=== PATIENT | female | born 1950 | race Caucasian/White ===

== ENCOUNTER → 2022-07-25 13:58 | Outpatient (REF) | payer MEDICARE, MEDICAID, SELFPAY ==
--- NOTE | 2022-07-25 14:02 | CA_ITS ---
Transthoracic Echocardiogram Patient (Last, First, Middle): Mi Elam, Gender: Female Date of : 1950 Age: 72 Procedure Date: 07/25/2022 Procedure Type: Transthoracic Echocardiogram Location: OP Height: 157.48 cm Weight: 145.15 kg BSA: 2.33 m2 Heart Rate: bpm BP: 140 / 82 mmHg Buttonholer: Referring MD: Lizeth Peters MD Symptoms: R01.1 - Cardiac murmur, unspecified Study Quality: Good ECG Rhythm: Sinus Conclusions: - The left ventricular systolic function is hyperdynamic. The visually estimated ejection fraction is >70%. - There is moderately increased left ventricular wall thickness. - There is mild aortic valve stenosis. - There is mild mitral annular calcification. Findings Left Ventricle Normal left ventricular cavity size. There is moderately increased left ventricular wall thickness. The left ventricular systolic function is hyperdynamic. The visually estimated ejection fraction is >70%. There is no evidence of regional wall motion abnormalities. Diastolic function is normal for age. Right Ventricle Normal right ventricular cavity size and systolic function. Atria Both atria are normal in size. Aortic Valve There is moderate calcification of the aortic valve. There is mild aortic valve stenosis. The peak aortic velocity is 3.10 m/s with a calculated peak gradient of 38 mmHg. The mean gradient is 19 mmHg. The aortic valve area is 1.68 cm2. There is no aortic valve regurgitation. Mitral Valve The mitral valve appears normal. There is mild mitral annular calcification. There is no mitral valve regurgitation. There is no mitral valve stenosis. Pulmonic Valve The pulmonic valve is likely normal. Tricuspid Valve There is mild tricuspid valve regurgitation. There is no evidence of pulmonary hypertension. Great Vessels The aortic annulus, sinuses of valsalva, and asc aorta are normal in size. Venous The inferior vena cava is normal in size and collapses greater than 50% with inspiration. Pericardium/Pleural There is no evidence of pericardial effusion. Prior Study Comparison No prior study available for comparison. Measurements 2D Linear Measurements IVSd: 1.43 0.6-0.9/0.6-1.0 cm LVIDd: 4.02 3.9-5.3/4.2-5.9 cm LVIDd Index: 1.73 2.4-3.2/2.2-3.1 cm/m2 LVIDs: 2.61 2.0-3.6 cm LVPWd: 1.35 0.7-1.1 cm Ao Root: 3.00 2.1-3.5 cm LA Diam: 4.20 2.7-3.8/3.0-4.0 cm LAIDs Index: 1.80 1.5-2.3 cm/m2 LV Mass: 259.45 67-162/88-224 g LV Mass Index: 111.35 43-95/49-115 g/m2 LVOT Diam: 2.00 3.0+(-)1.3 cm 2D Systolic Function EF 4C: 75.80 >55% EF 2C: 68.80 >55% EF BiP: 72.40 >55% Mitral Valve MV VTI: 0.48 MV Pk Niles: 1.31 MV Mn Niles: 0.77 MV Pk Grad: 7.00 MV Mn Grad: 3.00 MV Pk E: 0.99 MV PK A: 1.40 MV Decel Time: 274.00 E/A: 0.70 E'Lateral: 8.27 E'Medial: 6.85 E/E' Med: 14.50 E/E' Lat: 12.00 PHT: 80.00 MVA PHT: 2.75 MVA Continuity: 2.11 Decel Banner: 3.61 Aortic Valve AoV Pk Niles: 3.10 AoV Mn Niles: 2.01 AoV VTI: 0.60 AoV Pk Grad: 38.00 Aov Mn Grad: 19.00 LAUREN Cont.VTI: 1.68 LVOT LVOT Pk Niles: 1.45 LVOT Mn Niles: 0.99 LVOT VTI: 0.32 LVOT Pk Grad: 8.00 LVOT Mn Grad: 4.00 LVOT Diam: 2.00 LVOT Area: 3.14 Diastolic Function MV Pk E: 0.99 MV Pk A: 1.40 E/A: 0.70 E'Medial: 6.85 E/E' Med: 14.50 E' Laterial: 8.27 E/E' Lat: 12.00 Right Ventricle TAPSE (mm): 24.00 TVS' Niles: 13.00 Tricuspid Valve TR Pk Niles: 2.32 TR Pk Grad: 22.00 RA Press: 3.00 RVSP: 25.00 Great Vessels Aorta Ao Root-2D: 3.00 2.0-3.7 cm Ao Asc: 3.60 2.1-3.4 cm Ao Arch: 3.30 Pulmonary Valve PV Pk Niles: 1.86 Peak PV Grad: 14.00 Updated in Other Vendor System with Status of Final Bryce Duque MD electronically signed on 07/25/2022 4:29:00 PM with status of Final
== END ==
LOC: HO.CARD 13:58
PROVIDERS: PCP Internal Medicine; Visit Provider Internal Medicine
DX: R01.1 Cardiac murmur, unspecified (principal); E66.3 Overweight; B35.4 Tinea corporis
CPT/HCPCS: 93306

== ENCOUNTER 2022-08-02 09:25 | Outpatient (REF) | payer MEDICARE, MEDICAID, SELFPAY ==
[2022-08-02 11:27] LABS: MANUAL DIFF FLAG NO
[2022-08-02 11:39] LABS: Basophils Percent Auto 0.8 % (0-2); Eosinophils Absolute Auto 0.3 X10*3/uL (0.0-0.4); Hemoglobin 12.2 g/dl (12.0-16.0); Imm Gran Abs Auto 0.01 X10*3/uL (0.00-0.03); Imm Gran Pct Auto 0.2 % (0.0-0.4); Lymphocytes Absolute Auto 1.9 X10*3/uL (1.2-4.9); Lymphocytes Percent Auto 37.5 % (20-40); Mean Corpuscular HGB Conc 31.3 g/dl (31.0-35.0); Mean Corpuscular Hemoglobin 27.7 pg (27.0-33.0); Mean Corpuscular Volume 88.4 fL (80.0-98.0); Mean Platelet Volume 11.9 fL (9.4-12.3); Monocytes Absolute Auto 0.5 X10*3/uL (0.1-1.2); Monocytes Percent Auto 9.3 % (2-11); Neutrophils Absolute Auto 2.4 x10*3/uL (2.0-8.3); Neutrophils Percent Auto 46.2 % (45-73); Platelet Count 267 X10*3/uL (160-400); Red Blood Count 4.41 X10*6/uL (4.20-5.50); Red Cell Distribution Width 14.9 % (11.0-16.0); White Blood Count 5.2 X10*3/uL (4.8-10.8)
[2022-08-02 12:30] LABS: TSH reflex Free T4 0.78 uIU/mL (0.32-4.0)
[2022-08-02 12:31] LABS: Alanine Aminotransferase 13 U/L (0-31); Albumin Level 3.7 g/dL (3.5-5.0); Alkaline Phosphatase 104 U/L (39-117); Anion Gap 17 (12-20); Aspartate Amino Transferase 20 U/L (5-31); Bilirubin Total 0.5 mg/dL (0.0-1.0); Blood Urea Nitrogen 15 mg/dL (9-16); Calcium 9.1 mg/dL (8.4-10.2); Carbon Dioxide 23 mmol/L (22-29); Chloride 104 mmol/L (96-108); Cholesterol 177 mg/dL; Estimated Glomerular Filt Rate > 60; Glucose Fasting 83 mg/dL (60-99); HDL Cholesterol 40 mg/dL; LDL Cholesterol Calculated 120 mg/dl; Potassium 4.4 mmol/L (3.3-5.1); Sodium 140 mmol/L (135-145); Total Protein 7.5 g/dL (6.5-8.0); Triglycerides 89 mg/dL
== END 2022-08-02 09:26 | disposition home or self-care (01) ==
LOC: HO.HMGCLDS 09:25
PROVIDERS: PCP Internal Medicine; Visit Provider Internal Medicine
DX: Z00.00 Encounter for general adult medical examination without abnormal findings (principal); E66.3 Overweight
CPT/HCPCS: 36415; 80053; 80061; 84443; 85025

== ENCOUNTER 2022-11-19 18:18 | Emergency (ER) | payer MEDICARE, MEDICAID, SELFPAY ==
--- NOTE | ~2022-11-19 | XR_ITS ---
EXAMINATION: XR KNEE, LEFT CLINICAL INFORMATION: Left knee pain COMPARISON: None available. TECHNIQUE: Four views of the left knee. FINDINGS: No acute fractures. 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 No knee joint effusion. XR/XR knee LT 3V IMPRESSION: No acute process.
--- NOTE | ~2022-11-19 | CT_ITS ---
EXAMINATION: CT HEAD WITHOUT CONTRAST CT CERVICAL SPINE WITHOUT CONTRAST CLINICAL INFORMATION: Fall with head trauma and neck pain COMPARISON: None. TECHNIQUE: Contiguous axial imaging was performed from the skull base to vertex without intravenous administration of contrast. In addition, helical noncontrast CT imaging was acquired through the cervical spine and source images were reviewed along with axial reconstructions and sagittal and coronal MPRs. All CT exams at this location are performed using dose optimization techniques as appropriate to a performed exam including at least one of the following: * Automated exposure control * Adjustment of the mA and/or kV according to patient size (this includes techniques or standardized protocols for targeted exams where dose is matched to indication / reason for exam; i/e/ extremities or head) * Use of iterative reconstructive technique DLP: 1372 mGy-cm FINDINGS: HEAD: There is a moderate-sized subcutaneous soft tissue hematoma over the right posterior parietal scalp. No intracranial mass, hemorrhage, or midline shift is visualized. The ventricles and sulci are age-appropriate. No extra-axial collections are identified. The paranasal sinuses are well aerated. CERVICAL SPINE: There is no evidence of acute cervical spine fracture. Vertebral body height and alignment is well maintained. No pre- or paravertebral soft tissue abnormality is identified. Degenerative changes with disc space narrowing and osteophyte formation is seen at C3/C4, C5/C6 and C6/C7. Posterior facet joint arthropathy is seen on the left extending from C2 through C6. Limited assessment of the lung apices is unremarkable. CT/CT cervical spine wo IV con IMPRESSION: 1. Right posterior parietal scalp hematoma. No acute intracranial pathology. 2. No CT evidence of acute cervical spine fracture or traumatic subluxation. Multilevel degenerative disc disease and posterior facet joint arthropathy as described above
[2022-11-19 18:35] VITALS: BP 156/74; PULSE 79; RESP 16; TEMP 36.7; O2SAT 97; BMI 53.9
[2022-11-19 18:38] VITALS: PULSE 79; RESP 16; TEMP 36.7
--- NOTE | 2022-11-19 19:03 | ED.GENADULT ---
HPI - General Adult General Chief complaint: Fall Stated complaint: FALL CONTUSION HEAD LAC Time Seen by Provider: 11/19/22 18:42 Source: patient, RN notes reviewed and old records reviewed Mode of arrival: EMS Limitations: no limitations History of Present Illness HPI narrative: 72-year-old female presents for evaluation after a fall. Patient reports that she was trying to help her friend water her lawn She states that she slipped backwards and fell on the pavement Denies any prodrome of dizziness or chest pain or shortness of breath or lightheadedness. She did strike the back of her head but did not lose consciousness She denies use of blood thinners She arrives in a C-collar via EMS She has some bleeding from the back of her head that is controlled with a dressing She has some mild left knee pain but otherwise denies any other pain. Related Data Home Medications Medication Instructions Recorded Confirmed ibuprofen 200 mg tablet (Advil) 400 mg PO Q8H 05/27/22 05/27/22 Previous Rx's Medication Instructions Recorded fluconazole 200 mg tablet 200 mg PO DAILY 14 days #14 tabs 05/27/22 (Diflucan) nystatin 100,000 unit/gram topical 1 appl topical BID #240 grams 07/19/22 powder Allergies Allergy/AdvReac Type Severity Reaction Status Date / Time No Known Allergies Allergy Verified 07/19/22 12:30 Review of Systems Constitutional: Constitutional: Reports as per HPI, Denies chills, Denies fatigue, Denies fever(s) and Reports headache(s) ENT: Reports headache(s) Cardiovascular: Cardiovascular: Denies chest pain and Denies dyspnea Respiratory: Respiratory: Denies cough and Denies dyspnea Gastrointestinal: Gastrointestinal: Denies abdominal pain, Denies constipation and Denies vomiting Genitourinary: Genitourinary: Denies dysuria Neurologic: Reports headache(s) and Denies focal weakness Endocrine: Endocrine: Denies fatigue PMFSH Past Medical History Surgical History S/P cholecystectomy S/P foot surgery, right Family History Family History Father Diabetes Heart attack Mother Hypertension Social History Social History Housing: House Patient Tobacco Use Status: Never used Tobacco Smoked in Last 30 Days: No e-Cigarette/Vaping Use: Never Used Advance Directives: No Advance Directives Information Provided: Yes Current occupational status: retired Cognitive needs: No Hearing needs: No Vision needs: Yes Physical Exam ED Vital Signs: Vital Signs - 24 hr 11/19/22 18:35 11/19/22 18:38 Temperature 98.1 F 98.1 F Pulse Rate 79 79 Respiratory Rate 16 16 Blood Pressure 156/74 H Pulse Oximetry 97 Oxygen Delivery Method Room Air BMI result Body Mass Index 53.9 Const General: healthy appearing, comfortable, no acute distress, alert and awake Nutritional Appearance: well nourished Orientation/consciousness: patient oriented x3 HENMT Other: 4 cm linear full-thickness laceration to the right posterior scalp. There is a small amount of subcutaneous fat exposed Head: Yes normocephalic and No atraumatic Eyes Eyelids: Yes eyelids normal Conjunctivae: conjunctivae normal Sclerae: sclerae normal Corneas: corneas normal Pupils: Equal, round and reactive pupils present EOM: EOMs intact bilaterally Resp Effort & Inspection: normal respiratory effort, able to speak in complete sentences and not labored Cardio Rate: regular rate Rhythm: regular rhythm GI Inspection: No distended Palpation (GI): Soft to palpation, not firm, nontender, no guarding and not rigid Auscultation: normoactive bowel sounds Skin General skin exam: no rashes or lesions noted and elasticity normal Neuro General: patient oriented x3 Cranial nerves: Yes CN's II-XII intact bilaterally, Yes Equal, round and reactive pupils present and Yes Bilaterally intact EOM present Cognition (Neuro): normal cognition Extrem Other: Moving all extremities well without any obvious deformities. No tenderness over the ablation of the hips bilaterally. Patient is able to raise both lower extremities off the bed without difficulty. Mild left knee tenderness without significant deformity Course Reevaluation(s) Reevaluation #1: CT scan of cervical spine showed no fracture or subluxation. Patient's hard collar removed. Time: 21:28 Medications Administered Discontinued Medications Generic Name Dose Route Start Last Admin Trade Name Freq PRN Reason Stop Dose Admin Acetaminophen 975 mg 11/19/22 21:22 11/19/22 21:28 Acetaminophen 325 Mg Tablet PO 11/19/22 21:23 975 mg ONCE ONE Administration Diphtheria/Tetanus/Acell Pertussis 0.5 ml 11/19/22 21:05 11/19/22 21:23 Diphth,Pertus(Acell),Tet Adult 0.5 Ml Syringe IM 11/19/22 21:06 0.5 ml .ONCE ONE Administration Lidocaine/Epinephrine 10 ml 11/19/22 21:05 11/19/22 21:28 Lidocaine Hcl 1%/Epi 1:100,000 30 Ml Vial INFILTRATI 11/19/22 21:06 Not Given ONCE ONE Lidocaine/Epinephrine 10 ml 11/19/22 21:17 11/19/22 21:37 Lidocaine Hcl 1%/Epi 1:100,000 10 Ml Vial INFILTRATI 11/19/22 21:18 10 ml ONCE ONE Administration Procedures Laceration Laceration 1: Site: scalp Side (If applicable): right (Posterior) Size (cm): 3 Description: linear Depth: simple, single layer Local Anesthetic: lidocaine 1% and with epi Amount of anesthesia used (mL): 3 Pre-repair: wound explored and irrigated extensively Skin layer closed with: other (Surgical cheryl) Size (cm): other Number of sutures: 8 Medical Decision Making Medical Decision Making MDM Narrative: Patient reports a mechanical fall, she did not lose conscious after hitting her head but does have a laceration to the back of her scalp. Will get a CT scan of the brain and C-spine. X-ray of the left knee S patient reports some discomfort there but has no significant deformity. Differential Diagnosis Mechanical fall Minor head injury Head laceration Cervical sprain Cervical strain Cervical fracture Left knee contusion Radiology Impression Discussion of test interpretation with radiology: I have reviewed the radiologist's reading. (No fracture cervical spine no acute traumatic injury of the head CT) Discharge Plan Discharge Clinical Impression: Laceration of head Patient Disposition: Home, Self-Care Instructions: Head Laceration (ED) Additional Instructions: You had 8 cheryl placed today that can be removed in 7 days You may follow-up with your primary doctor or return to the ER Keep the area clean and dry Use ibuprofen or Tylenol for your headache Prescriptions: No Action ibuprofen [Advil] 200 mg tablet 400 mg PO Q8H fluconazole [Diflucan] 200 mg tablet 200 mg PO DAILY 14 Days Qty: 14 0RF nystatin 100,000 unit/gram powder 1 appl topical BID Qty: 240 2RF
--- NOTE | 2022-11-19 20:24 | PC.NURSE ---
Pt ca&ox3, no signs of distress. Pt requesting hob elevated. Call wolfe placed within reach. Will continue to monitor.
[2022-11-19] MEDS: Diphth,Pertus(ACell),Tet Adult 0.5 ML SYRINGE IM (21:23)
[2022-11-19] MEDS: Acetaminophen 325 MG TABLET 975 MG PO (21:28)
--- NOTE | 2022-11-19 21:30 | PC.NURSE ---
Pt ca&ox3, no signs of distress. Pt medicated per mar. Pt sitting up in bed talking. Will continue to monitor.
[2022-11-19] MEDS: Lidocaine HCl 1%/Epi 1:100,000 10 ML VIAL INFILTRATI (21:37)
--- NOTE | 2022-11-19 21:56 | PC.NURSE ---
pt ca&ox3, ambulates with a steady gait. No signs of distress. Will continue to monitor.
== END 2022-11-19 22:05 | disposition home or self-care (01) ==
PROVIDERS: Emergency Provider Emergency Medicine; PCP Internal Medicine
DX: S01.01XA Laceration without foreign body of scalp, initial encounter (principal); W01.198A Fall on same level from slipping, tripping and stumbling with subsequent striking against other object, initial encounter; M25.562 Pain in left knee; Y93.H9 Activity, other involving exterior property and land maintenance, building and construction; Y92.017 Garden or yard in single-family (private) house as the place of occurrence of the external cause; Y99.9 Unspecified external cause status
CPT/HCPCS: 12002; 70450; 72125; 73562; 90471; 90715; 99284